=== PATIENT | female | born 1960 | race Hispanic/Latino ===

== ENCOUNTER → 2024-10-17 | Day surgery (SDC) | payer MEDICARE, OTHER ==
[2024-10-11 10:20] LABS: BASOPHILS # (AUTO) 0.1 (0.0-0.1); BASOPHILS % 1.4 % (0.0-1.0); EOSINOPHILS # (AUTO) 0.3 (0.0-0.4); EOSINOPHILS % 4.7 % (0.0-6.0); HEMATOCRIT 38.7 % (34.2-44.1); LYMPHOCYTES # (AUTO) 2.9 (1.0-3.2); LYMPHOCYTES % 40.1 % (18.0-39.1); MEAN CORPUSCULAR HEMOGLOBIN 28.8 pg (28-32); MEAN CORPUSCULAR HGB CONC 33.6 g/dL (31-35); MEAN CORPUSCULAR VOLUME 85.8 fL (81-99); MONOCYTES # (AUTO) 0.6 (0.2-0.8); MONOCYTES % 8.1 % (4.4-11.3); NEUTROPHILS # (AUTO) 3.3 (2.1-6.9); NEUTROPHILS % 45.6 % (38.7-80.0); PLATELET COUNT 306 x10e3/uL (140-360); RED BLOOD COUNT 4.51 x10e6/uL (3.6-5.1); RED CELL DISTRIBUTION WIDTH 12.7 % (11.7-14.4); WHITE BLOOD COUNT 7.26 x10e3/uL (4.8-10.8)
[~2024-10-17] MED LIST: LIDOCAINE HCL 2% LOCAL INJ 5 ML SDV VIAL INJ ONE; PROPOFOL IV EMULSION 10 MG/ML 20 ML VIAL ONE; [UNRECOGNIZED DRUG - MIXTURE] PO
[2024-10-17] MEDS: LACTATED RINGER'S 1,000 ML ONE (08:04)
[2024-10-17 10:44] VITALS: TEMP 98.1
[2024-10-17 11:05] VITALS: BP 160/84; PULSE 60; RESP 18; O2SAT 99
== END | disposition home or self-care (01) ==
LOC: OR 06:32
PROVIDERS: ATTEND Internal Medicine Gastroenterology
DX: Z12.11 Encounter for screening for malignant neoplasm of colon (principal); D12.0 Benign neoplasm of cecum; D12.3 Benign neoplasm of transverse colon; K64.8 Other hemorrhoids; Z78.9 Other specified health status; G89.29 Other chronic pain; M19.90 Unspecified osteoarthritis, unspecified site; Z01.810 Encounter for preprocedural cardiovascular examination; Z01.812 Encounter for preprocedural laboratory examination; Z68.29 Body mass index [BMI] 29.0-29.9, adult; Z71.3 Dietary counseling and surveillance
CPT/HCPCS: 36415; 45385; 85025; 88305; 93005; J2003; J2704; J7121

== ENCOUNTER → 2025-03-27 | Day surgery (SDC) | payer OTHER ==
[2025-03-21 10:20] LABS: BASOPHILS % 1.3 % (0.0-1.0); EOSINOPHILS % 4.1 % (0.0-6.0); LYMPHOCYTES % 37.6 % (18.0-39.1); MONOCYTES % 8.4 % (4.4-11.3); NEUTROPHILS % 48.5 % (38.7-80.0); RED CELL DISTRIBUTION WIDTH 12.7 % (11.7-14.4)
[2025-03-21 11:03] LABS: EST GLOMERULAR FILTRATION RATE 93.0 ML/MIN (>=60)
[~2025-03-27] MED LIST changes: +ASPIRIN EC81 MG PO; +FENTANYL CITRATE/PF 100MCG/2 ML INJ ONE; -LIDOCAINE HCL 2% LOCAL INJ 5 ML SDV VIAL INJ ONE; +MIDAZOLAM HCL 2 MG/2 ML VIAL ONE; +ONDANSETRON HCL INJ 2MG/ML 2ML 2 MG/ML VIAL ONE; +PROBIOTIC & AC1 EACH PO; -PROPOFOL IV EMULSION 10 MG/ML 20 ML VIAL ONE; +VITAMIN C1000 MG PO; +VITAMIN D3 COM1 EACH PO; +VITAMIN E400 UNI1 PO
[2025-03-27] MEDS: PHENYLEPHRINE HCL 2 ML DROPS ONE (10:56)
[2025-03-27] MEDS: GATIFLOXACIN(OPTH) 5 ML LIQD ONE (10:56)
[2025-03-27] MEDS: LACTATED RINGER'S 1,000 ML ONE (10:56)
[2025-03-27] MEDS: CYCLOPENTOLATE HCL 2% OPTH SOLN 2 ML BTL OP ONE (10:57)
[2025-03-27 13:16] VITALS: TEMP 97
[2025-03-27 13:40] VITALS: BP 152/87; PULSE 54; RESP 18; O2SAT 99
== END | disposition home or self-care (01) ==
LOC: OR 08:54
PROVIDERS: ATTEND Ophthalmology
DX: H25.11 Age-related nuclear cataract, right eye (principal); Z01.810 Encounter for preprocedural cardiovascular examination; Z01.812 Encounter for preprocedural laboratory examination; Z79.82 Long term (current) use of aspirin
CPT/HCPCS: 36415; 66984; 80048; 85025; 93005; J2250; J2405; J7121; V2632